=== PATIENT | male | born 1970 | race Caucasian/White ===

== ENCOUNTER 2023-06-23 10:15 | Outpatient (RCR) | payer OTHER, SELFPAY | END 2023-09-23 07:18 | disposition home or self-care (01) | PROVIDERS: PCP Family Medicine; Visit Provider Student in an Organized Health Care Education/Training Program | DX: M54.2 Cervicalgia (principal); M54.12 Radiculopathy, cervical region; Z51.89 Encounter for other specified aftercare | CPT/HCPCS: 97110; 97140; 97161; 97162; 97535 ==

== ENCOUNTER 2025-05-07 10:28 | Outpatient (CLI) | payer BC, SELFPAY ==
--- NOTE | 2025-05-07 11:00 | CRLHL7_ITS ---
For Patients: As a result of the Century Cures Act, medical imaging exams and procedure reports are released immediately into your electronic medical record. You may view this report before your referring provider. If you have questions, please contact your health care provider. INDICATION : Periumbilical pain. TECHNIQUE : CT scan abdomen and pelvis 139 cc Isovue 370 Sagittal and coronal reconstructions FINDINGS : Abdominal wall: There is infiltration of fat within small umbilical hernia. No herniation of bowel loops. Lung bases: Scarring in the lingula Liver: Unremarkable Spleen: Unremarkable Pancreas: Unremarkable Adrenal glands: Unremarkable Kidneys: Hyperattenuating possible cyst right kidney lower pole 16 millimeters. Image 82. Additional simple cysts. No hydronephrosis. Gastrointestinal: Unremarkable Lymph nodes: No adenopathy Aorta: Normal caliber Pelvis: Bladder: Unremarkable Prostate: Unremarkable Skeletal: Unremarkable IMPRESSION : 1. Localized minimal fat stranding and infiltration within a small umbilical hernia. Correlate with clinical exam. Incarceration of fat could be considered and is greatest along the superior aspect of the umbilicus noted on the sagittal reconstruction. Consider general surgical consult. 2. Renal cysts are present. There is a hyperattenuating possible Bosniak 2 cyst of the right kidney. Renal ultrasound targeted evaluation can be obtained. Alternatively if the patient can return for follow-up CT abdomen renal mass protocol pre and postcontrast. Please note that all CT scans at this facility use dose modulation, iterative reconstruction, and/or weight-based dosing when appropriate to reduce radiation dose to as low as reasonably achievable. Dictated by José Miguel Mccauley MD @ 05/09/2025 11:18:44 AM (Electronically Signed)
== END 2025-05-07 10:29 | disposition home or self-care (01) ==
LOC: CT 10:31
PROVIDERS: PCP Family Medicine; Visit Provider Family Medicine
DX: R10.33 Periumbilical pain (principal); K42.9 Umbilical hernia without obstruction or gangrene; N28.1 Cyst of kidney, acquired
CPT/HCPCS: 74177; Q9967